=== PATIENT | female | born 1950 | race American Indian/Alaskan Native ===

== ENCOUNTER 2020-12-02 14:57 | Observation (INO) | payer MEDICARE ==
[2020-12-02] MEDS ORDERED: ASPIRIN 325 MG TAB PO ONE (15:04)
[2020-12-02 15:51] LABS: Basophils % (Auto) 0.6 % (0.0-1.8); Eosinophils # (Auto) 0.1 K/mm3 (0.0-0.4); Eosinophils % (Auto) 2.6 % (0.0-4.3); Hematocrit 34.8 % (30.3-42.9); Hemoglobin 11.7 gm/dl (10.1-14.3); Lymphocytes # (Auto) 1.1 K/mm3 (1.2-5.4); Lymphocytes % (Auto) 32.6 % (13.4-35.0); Mean Corpuscular HGB Conc 34 % (30-34); Mean Corpuscular Volume 95 fl (79-97); Monocytes # (Auto) 0.3 K/mm3 (0.0-0.8); Monocytes % (Auto) 8.4 % (0.0-7.3); Platelet Count 196 K/mm3 (140-440); Red Blood Count 3.65 M/mm3 (3.65-5.03)
[2020-12-02 16:04] LABS: Alanine Aminotransferase 12 units/L (7-56); Albumin 4.4 g/dL (3.9-5); Blood Urea Nitrogen 8 mg/dL (7-17); Calcium 9.9 mg/dL (8.4-10.2); Hemolysis Index 9
--- NOTE | 2020-12-02 16:06 | XRay Report ---
CHEST 2 VIEWS INDICATION / CLINICAL INFORMATION: chest pain. COMPARISON: None available. FINDINGS: SUPPORT DEVICES: None. HEART / MEDIASTINUM: No significant abnormality. LUNGS / PLEURA: No significant pulmonary or pleural abnormality. No pneumothorax. ADDITIONAL FINDINGS: No significant additional findings. IMPRESSION: 1. No acute findings. Signer Name: Freddy Jackson MD Signed: 12/02/2020 4:01 PM Workstation Name: [id number]
[2020-12-02 16:10] LABS: BUN/Creatinine Ratio 11
--- NOTE | 2020-12-02 18:47 | Event Note ---
ED Screening Note ED Screening Note: states she received the COVID 19 vaccine three days ago states she has been having right sided CP no radiation of the pain states it feels tightness + occasional SOB no pleuritic CP no fever no v/d no cough PMHx DM, breast cancer in remission 5 years allergy: sulfa never been a smoker no cardiac hx no hx of DVT/PE This initial assessment/diagnostic orders/clinical plan/treatment(s) is/are subject to change based on patients health status, clinical progression and re- assessment by fellow clinical providers in the ED. Further treatment and workup at subsequent clinical providers discretion. Patient/guardian urged not to elope from the ED as their condition may be serious if not clinically assessed and managed. Initial orders include: second troponin, needs d-dimer due to CP/SOB with cancer hx
--- NOTE | 2020-12-02 21:17 | Emergency Department Report ---
ED Chest Pain HPI - General Chief Complaint: Chest Pain Stated Complaint: CHEST PAIN Time Seen by Provider: 12/02/20 18:44 Source: patient Mode of arrival: Ambulatory Limitations: No Limitations - History of Present Illness Initial Comments: Patient is a 70-year-old -[place] female with a history of cbd-javtdhp-bxirthwma diabetes, breast cancer s/p lumpectomy in 2014 and neck surgery in 2018 and who presents to the ED with complaint of acute onset persistent right-sided chest pain that radiates to the right shoulder and lateral right neck for the last 4 days. Patient states that the pain is worse with movement, inhalation, or when she lays on the right side of her chest. Patient described the pain as persistent, intermittently sharp but also pressure-like. Patient states that she has not been physically evaluated by her director translational in over 2 years except for a virtual visit she had with the director translational over 12 months ago. Patient also states that she has not had any cardiac stress test in over 20 years. Patient also states that the pain in the right side of the chest has also been intermittently radiating to the left chest wall and to the left shoulder intermittently for the last 12 hours. Patient denies dizziness, syncope, fever, chills, cough, abdominal pain, diaphoresis, nausea and vomiting, heavy lifting, back pain, change in vision, heavy lifting or fall. MD Complaint: chest pain (Right-sided chest wall pain), other (Right shoulder and right lateral neck pain with any movement) -: Sudden, days(s) (4) Onset: awoke with symptoms Pain Location: right chest, other (right shoulder, lateral right neck) Pain Radiation: RUE, neck (lateral right neck) Severity: severe Severity scale (0 -10): 8 Quality: aching, sharp Consistency: constant Improves With: nothing, other (tylenol) Worsens With: exertion, inspiration, palpation, movement re: denies: nausea, vomting, diaphoresis, dyspnea, sense of impending doom Other Symptoms: denies: cough, fever, syncope, rash, acid taste in mouth, leg swelling, palpitations, burping Treatments Prior to Arrival: none Aspirin use within the Past 7 Days: (0) No - Related Data On Oral Contraceptives: No Allergies Allergy/AdvReac Type Severity Reaction Status Date / Time Sulfa (Sulfonamide AdvReac Swelling Verified 12/02/20 15:04 Antibiotics) Heart Score - HEART Score History: Moderately suspicious EKG: Non-specific Age: > 65 Risk factors: 1-2 risk factors Troponin: < normal limit HEART Score: 5 - EKG Read Time Time EKG Completed: 15:18 EKG Read Time: 15:23 - Critical Actions Critical Actions: 4-6 pts:12-16.6% risk of adverse cardiac event. Should be admitted ED Review of Systems ROS: Stated complaint: CHEST PAIN Other details as noted in HPI Constitutional: denies: chills, fever Eyes: denies: eye pain, eye discharge, vision change ENT: denies: ear pain, throat pain Respiratory: denies: cough, shortness of breath, wheezing Cardiovascular: chest pain (Right-sided chest pain that radiates to the right shoulder and lateral right neck). denies: palpitations, dyspnea on exertion, edema, syncope Endocrine: no symptoms reported Gastrointestinal: denies: abdominal pain, nausea, vomiting, diarrhea Genitourinary: denies: urgency, dysuria, discharge Musculoskeletal: arthralgia (Right shoulder and lateral right sided neck pain), other (Neck pain). denies: back pain, joint swelling Skin: denies: rash, lesions Neurological: denies: headache, weakness, paresthesias Psychiatric: denies: anxiety, depression Hematological/Lymphatic: denies: easy bleeding, easy bruising ED Past Medical Hx - Past Medical History Hx Diabetes: Yes Additional medical history: Right sided breast cancer s/p lumpectomy; cervical disc surgery ED Physical Exam - General Limitations: No Limitations General appearance: alert, in no apparent distress - Head Head exam: Present: atraumatic, normocephalic, normal inspection - Eye Eye exam: Present: normal appearance, PERRL, EOMI Pupils: Present: normal accommodation - ENT ENT exam: Present: normal exam, normal orophraynx, mucous membranes moist, TM's normal bilaterally, normal external ear exam - Neck Neck exam: Present: normal inspection, tenderness (Palpable cervical paraspinal musculoskeletal tenderness), other (No midline tenderness). Absent: meningismus , full ROM, lymphadenopathy, thyromegaly - Respiratory Respiratory exam: Present: normal lung sounds bilaterally, chest wall tenderness (Palpable reproducible anterior right-sided chest wall tenderness). Absent: respiratory distress, wheezes, rales, rhonchi, accessory muscle use, decreased breath sounds, prolonged expiratory - Cardiovascular Cardiovascular Exam: Present: regular rate, normal rhythm, normal heart sounds. Absent: systolic murmur, diastolic murmur, rubs, gallop - GI/Abdominal GI/Abdominal exam: Present: soft, normal bowel sounds. Absent: tenderness, guarding, rebound, hyperactive bowel sounds, hypoactive bowel sounds, organomegaly - Extremities Exam Extremities exam: Present: normal inspection, full ROM, tenderness (Palpable right shoulder tenderness), normal capillary refill. Absent: pedal edema, calf tenderness - Back Exam Back exam: Present: normal inspection, full ROM. Absent: tenderness, CVA tenderness (R), CVA tenderness (L), muscle spasm, paraspinal tenderness, ashleigh tebral tenderness, rash noted - Neurological Exam Neurological exam: Present: alert, oriented X3, CN II-XII intact, normal gait, reflexes normal - Psychiatric Psychiatric exam: Present: normal affect, normal mood - Skin Skin exam: Present: warm, dry, intact, normal color. Absent: rash ED Course Vital Signs 12/02/20 15:03 Temperature 98.8 F Pulse Rate 62 Respiratory 14 Rate Blood Pressure 125/68 [Left] O2 Sat by Pulse 100 Oximetry DOV score - Dov Score Age > 65: (0) No Aspirin use within the Past 7 Days: (0) No 3 or more CAD Risk Factors: (0) No 2 or more Angina events in past 24 hrs: (0) No Known CAD with more than 50% Stenosis: (0) No Elevated Cardiac Markers: (0) No ST Deviation Greater than 0.5mm: (0) No DOV Score: 0 ED Medical Decision Making - Lab Data Result diagrams: 12/02/20 15:29 12/02/20 15:29 - EKG Data EKG shows normal: sinus rhythm Rate: normal - EKG Data Interpretation: normal EKG 12/02/20 21:19 EKG shows normal sinus rhythm with a ventricular rate of 62 bpm and borderline T wave abnormalities in diffuse leads. - Radiology Data Radiology results: report reviewed, image reviewed [facility] [address] [place] [address] XRay Report Signed Patient: TOHNG RAVI MR#: [id number] : 1950 Acct:[id number] Age/Sex: 70 / F ADM Date: 12/02/20 Loc: ED Attending Dr: Ordering Physician: ARPIT ROWE MD Date of Service: 12/02/20 Procedure(s): XR chest routine 2V Accession Number(s): [id number] cc: ED MD JAE Fluoro Time In Minutes: CHEST 2 VIEWS INDICATION / CLINICAL INFORMATION: chest pain. COMPARISON: None available. FINDINGS: SUPPORT DEVICES: None. HEART / MEDIASTINUM: No significant abnormality. LUNGS / PLEURA: No significant pulmonary or pleural abnormality. No pneumothorax. ADDITIONAL FINDINGS: No significant additional findings. IMPRESSION: 1. No acute findings. Signer Name: Freddy Jackson MD Signed: 12/02/2020 4:01 PM Workstation Name: [id number] Transcribed By: SB Dictated By: FREDDY JACKSON MD Electronically Authenticated By: FREDDY JACKSON MD Signed Date/Time: 12/02/201600 DD/ 00 TD/TT: - Medical Decision Making This is a 70-year-old -[place] female with a history of clm-opviaue-ftypyarly diabetes, breast cancer s/p lumpectomy in 2014 and neck surgery in 2018 and who presents to the ED with complaint of acute onset persistent right-sided chest pain that radiates to the right shoulder and lateral right neck for the last 4 days. Patient states that the pain is worse with movement, inhalation, or when she lays on the right side of her chest. Patient described the pain as persistent, intermittently sharp but also pressure-like. Patient states that she has not been physically evaluated by her director translational in over 2 years except for a virtual visit she had with the director translational over 12 months ago. Patient also states that she has not had any cardiac stress test in over 20 years. Patient also states that the pain in the right side of the chest has also been intermittently radiating to the left chest wall and to the left shoulder intermittently for the last 12 hours. In the ED, patient is alert and oriented x3 and is not in any distress. Patient is hemodynamically stable. EKG shows normal sinus rhythm with ventricular rate of 62 bpm, but low voltage in precordial leads and borderline T wave abnormalities in diffuse leads. Chest x-ray shows no acute cardiopulmonary abnormalities or pneumonitis. Lab test results were reviewed and are all nonactionable including the initial and 3-hour troponin levels. The patient's heart score is 5 and her D-dimer level was normal. The other differential diagnoses were considered including ACS, pneumonia, dissection, costochondritis or GERD.. The patient symptoms are unlikely to be due to PE as D-dimer was normal. Patient was treated for pain in the ED. The patient case was discussed with the ED attending physician Dr. Ej Gallardo who also evaluated the patient and agreed with the plan of care. Patient she will be admitted to the hospital for further evaluation. The hospitalist physician on-call Dr. Sebastian was paged and he also evaluated the patient and admitted the patient to the hospital. - Differential Diagnosis ACS; dissection; PE; pneumonia; GERD; Costochondritis Critical Care Time: Yes Critical care time in (mins) excluding proc time.: 35 Critical care attestation.: If time is entered above; I have spent that time in minutes in the direct care of this critically ill patient, excluding procedure time. 35 minutes of critical care time spent on review of lab test results as well as imaging reports, patient education regarding the plan of care and lab test results, consultation with the other physicians, and chart review and completion. Critical Care Time: 35 minutes of critical care time spent on review of lab test results as well as imaging reports, patient education regarding the plan of care and lab test results, consultation with the other physicians, and chart review and completion. ED Disposition Clinical Impression: Right-sided chest pain Disposition: 02 SHORT TERM HOSPITAL Is pt being admited?: Yes Does the pt Need Aspirin: Yes Condition: Stable Instructions: Nonspecific Chest Pain, Adult Time of Disposition: 21:36 Print Language: SETSWANA
[2020-12-02] MEDS ORDERED: ONDANSETRON 4 MG/2 ML INJ IV ONE (21:38)
[2020-12-02] MEDS ORDERED: MORPHINE 4 MG/1 ML INJ IV ONE (21:38)
[2020-12-02] MEDS ORDERED: ONDANSETRON 4 MG/2 ML INJ IV PRN (21:45)
[2020-12-02] MEDS ORDERED: ACETAMINOPHEN 325 MG TAB PO PRN (21:45)
--- NOTE | 2020-12-02 22:04 | Event Note ---
Date of service: 12/02/20 Face to Face: For this encounter I have reviewed the PA/TOE PULLER documentation, treatment plan, medical decision making, and I had face to face time with this patient. The patient was evaluated in the emergency department for symptoms described in the history of present illness. He/she was evaluated in the context of the global COVID-19 pandemic, which necessitated consideration that the patient might be at risk for infection with the virus that causes COVID-19. Institutional protocols and algorithms that pertain to the evaluation of patients at risk for COVID-19 are in a state of rapid change based on information released by regulatory bodies including the CDC and federal and state organizations. These policies and algorithms were followed during the patient's care in the emergency department. Please note that these policies, procedures and recommendations changed on a rapid basis. Patient is a 70-year-old female, with a history of diabetes, no recent cardiac for stratification, has received 1 round of COVID-19 vaccination, presenting with central, right-sided and left-sided chest pain. Patient denies vomiting, diaphoresis and exertional shortness of breath. Troponin negative x2. D-dimer negative. Patient denies loss of taste and smell. EKG abnormal, sinus rhythm, bradycardia, with a left axis deviation, and left anterior fascicular block. Patient moderate risk for major adverse cardiac event as per heart score. Denies immobilization, surgery, leg pain, leg swelling, and oral contraceptive use. Had a recent 4-hour road trip to [place]. Not currently tachycardic, tachypneic or hypoxic. External physical examination otherwise unremarkable. Recommend admission to the medical service for cardiac risk ratification. I discussed this with the patient. She is agreeable to this plan of care. Physician pet care assistant to admit this patient to the medical service. Vital Signs 12/02/20 15:03 Temperature 98.8 F Pulse Rate 62 Respiratory 14 Rate Blood Pressure 125/68 [Left] O2 Sat by Pulse 100 Oximetry Lab Results 12/02/20 12/02/20 12/02/20 Range/Units 15:29 15:29 18:13 WBC 3.5 L (4.5-11.0) K/mm3 RBC 3.65 (3.65-5.03) M/mm3 Hgb 11.7 (10.1-14.3) gm/dl Hct 34.8 (30.3-42.9) % MCV 95 (79-97) fl MCH 32 (28-32) pg MCHC 34 (30-34) % RDW 13.0 L (13.2-15.2) % Plt Count 196 (140-440) K/mm3 Lymph % (Auto) 32.6 (13.4-35.0) % [place] % (Auto) 8.4 H (0.0-7.3) % Eos % (Auto) 2.6 (0.0-4.3) % Baso % (Auto) 0.6 (0.0-1.8) % Lymph # (Auto) 1.1 L (1.2-5.4) K/mm3 [place] # (Auto) 0.3 (0.0-0.8) K/mm3 Eos # (Auto) 0.1 (0.0-0.4) K/mm3 Baso # (Auto) 0.0 (0.0-0.1) K/mm3 Seg Neutrophils % 55.8 (40.0-70.0) % Seg Neutrophils # 2.0 (1.8-7.7) K/mm3 D-Dimer (0-234) ng/mlDDU Sodium 140 (137-145) mmol/L Potassium 3.6 (3.6-5.0) mmol/L Chloride 104.4 (98-107) mmol/L Carbon Dioxide 26 (22-30) mmol/L Anion Gap 13 mmol/L BUN 8 (7-17) mg/dL Creatinine 0.7 (0.6-1.2) mg/dL Estimated GFR > 60 ml/min BUN/Creatinine Ratio 11 % Glucose 128 H (65-100) mg/dL Calcium 9.9 (8.4-10.2) mg/dL Total Bilirubin 0.20 (0.1-1.2) mg/dL AST 17 (5-40) units/L ALT 12 (7-56) units/L Alkaline Phosphatase 51 (35-129) units/L Troponin T < 0.010 < 0.010 (0.00-0.029) ng/mL Total Protein 7.3 (6.3-8.2) g/dL Albumin 4.4 (3.9-5) g/dL Albumin/Globulin Ratio 1.5 % 08/30/21 Range/Units 19:06 WBC (4.5-11.0) K/mm3 RBC (3.65-5.03) M/mm3 Hgb (10.1-14.3) gm/dl Hct (30.3-42.9) % MCV (79-97) fl MCH (28-32) pg MCHC (30-34) % RDW (13.2-15.2) % Plt Count (140-440) K/mm3 Lymph % (Auto) (13.4-35.0) % [place] % (Auto) (0.0-7.3) % Eos % (Auto) (0.0-4.3) % Baso % (Auto) (0.0-1.8) % Lymph # (Auto) (1.2-5.4) K/mm3 [place] # (Auto) (0.0-0.8) K/mm3 Eos # (Auto) (0.0-0.4) K/mm3 Baso # (Auto) (0.0-0.1) K/mm3 Seg Neutrophils % (40.0-70.0) % Seg Neutrophils # (1.8-7.7) K/mm3 D-Dimer 145.24 (0-234) ng/mlDDU Sodium (137-145) mmol/L Potassium (3.6-5.0) mmol/L Chloride (98-107) mmol/L Carbon Dioxide (22-30) mmol/L Anion Gap mmol/L BUN (7-17) mg/dL Creatinine (0.6-1.2) mg/dL Estimated GFR ml/min BUN/Creatinine Ratio % Glucose (65-100) mg/dL Calcium (8.4-10.2) mg/dL Total Bilirubin (0.1-1.2) mg/dL AST (5-40) units/L ALT (7-56) units/L Alkaline Phosphatase (35-129) units/L Troponin T (0.00-0.029) ng/mL Total Protein (6.3-8.2) g/dL Albumin (3.9-5) g/dL Albumin/Globulin Ratio % CHEST 2 VIEWS INDICATION / CLINICAL INFORMATION: chest pain. COMPARISON: None available. FINDINGS: SUPPORT DEVICES: None. HEART / MEDIASTINUM: No significant abnormality. LUNGS / PLEURA: No significant pulmonary or pleural abnormality. No pneumothorax. ADDITIONAL FINDINGS: No significant additional findings. IMPRESSION: 1. No acute findings. Signer Name: Freddy Jackson MD Signed: 12/02/2020 3:01 PM Workstation Name: [email or web address]
[2020-12-03] MEDS ORDERED: NITROGLYCERIN 0.4 MG TAB SUBL SL PRN (00:38)
[2020-12-03] MEDS ORDERED: MAGNESIUM HYDROXIDE (MOM) ORAL LIQD UDC PO PRN (00:38)
[2020-12-03] MEDS ORDERED: MORPHINE 2 MG/1 ML INJ IV PRN (00:38)
[2020-12-03] MEDS ORDERED: MORPHINE 4 MG/1 ML INJ IV PRN (00:38)
[2020-12-03] MEDS ORDERED: ACETAMINOPHEN 325 MG TAB PO PRN ×2 (00:38)
[2020-12-03] MEDS ORDERED: DEXTROSE 50% IN WATER (25GM) 50 ML SYRINGE IV PRN (00:38)
[2020-12-03] MEDS ORDERED: ONDANSETRON 4 MG/2 ML INJ IV PRN (00:38)
[2020-12-03] MEDS ORDERED: traMADol 50 MG TAB PO PRN (00:38)
--- NOTE | 2020-12-03 01:00 | History and Physical Report ---
History of Present Illness Date of examination: 12/03/20 Date of admission: 12/02/20 21:39 Chief complaint: Chest Pain History of present illness: 70-year-old white female with known history of diabetes mellitus and history of right-sided breast cancer status lumpectomy presents to the emergency room today complaining of chest pain. Chest pain is said to be right-sided and has been ongoing for the past 4 days. Pain is worse upon exertion and gets better upon resting. Pain has been intermittent and occasionally sharp and pressure-like in nature. She has had some radiation to the right side of her neck and shoulder. On a scale of 10 pain was about 8/10 in severity. Last stress test was about 20 years ago. Patient denies any headache or dizziness, no syncope and no diaphoresis. She denies any fever or chills, no cough, no nausea vomiting and no abdominal pain. She denies any hematuria or dysuria. Patient denies any sick contacts and no recent travel. Denies any contact with anyone with COVID-19. Work-up in the emergency room today has been unremarkable. Troponins have been negative. EKG and chest x-ray has been within normal limits. Patient is being admitted for chest pain evaluation. Past History Past Medical History: diabetes Past Surgical History: Other (Right sided Breast Ca s/p Lumpectomy, Cervical Disc Surgery) Social history: no significant social history Family history: no significant family history Medications and Allergies Allergies Allergy/AdvReac Type Severity Reaction Status Date / Time Sulfa (Sulfonamide AdvReac Swelling Verified 12/02/20 15:04 Antibiotics) Active Meds: Active Medications Acetaminophen (Acetaminophen 325 Mg Tab) 650 mg PO Q4H PRN PRN Reason: Pain MILD(1-3)/Fever >100.5/HEREDIA Last Admin: 12/02/20 22:53 Dose: 650 mg Documented by: Acetaminophen (Acetaminophen 325 Mg Tab) 650 mg PO Q4H PRN PRN Reason: Pain MILD(1-3)/Fever >100.5/HEREDIA Acetaminophen (Acetaminophen 325 Mg Tab) 650 mg PO Q6H PRN PRN Reason: Pain, Mild (1-3) Aspirin (Aspirin Ec 325 Mg Tab) 325 mg PO QDAY BRENNA Dextrose (Dextrose 50% In Water (25gm) 50 Ml Syringe) 50 ml IV Q30MIN PRN; Protocol PRN Reason: Hypoglycemia Heparin Sodium (Porcine) (Heparin 5,000 Unit/1 Ml Vial) 5,000 unit SUB-Q Q8HR [facility] Insulin Human Lispro (Insulin Lispro 100 Unit/Ml) 0 unit SUB-Q ACHS [facility]; Protocol Magnesium Hydroxide (Magnesium Hydroxide (Mom) Oral Liqd Udc) 30 ml PO Q4H PRN PRN Reason: Constipation Morphine Sulfate (Morphine 2 Mg/1 Ml Inj) 2 mg IV Q4H PRN PRN Reason: Pain, Moderate (4-6) Morphine Sulfate (Morphine 4 Mg/1 Ml Inj) 4 mg IV Q4H PRN PRN Reason: Pain , Severe (7-10) Nitroglycerin (Nitroglycerin 0.4 Mg Tab Subl) 0.4 mg SL Q5M PRN PRN Reason: Chest Pain Ondansetron HCl (Ondansetron 4 Mg/2 Ml Inj) 4 mg IV Q8H PRN PRN Reason: Nausea And Vomiting Ondansetron HCl (Ondansetron 4 Mg/2 Ml Inj) 4 mg IV Q8H PRN PRN Reason: Nausea And Vomiting Sodium Chloride (Sodium Chloride 0.9% 10 Ml Flush Syringe) 10 ml IV BID [facility] Last Admin: 12/02/20 23:03 Dose: 10 ml Documented by: Sodium Chloride (Sodium Chloride 0.9% 10 Ml Flush Syringe) 10 ml IV PRN PRN PRN Reason: LINE FLUSH Sodium Chloride (Sodium Chloride 0.9% 10 Ml Flush Syringe) 10 ml IV BID [facility] Sodium Chloride (Sodium Chloride 0.9% 10 Ml Flush Syringe) 10 ml IV PRN PRN PRN Reason: LINE FLUSH Sodium Chloride (Sodium Chloride 0.9% 10 Ml Flush Syringe) 10 ml IV PRN PRN PRN Reason: LINE FLUSH Tramadol HCl (Tramadol 50 Mg Tab) 50 mg PO Q6H PRN PRN Reason: Pain, Moderate (4-6) Review of Systems Constitutional: no fever, no chills Ears, nose, mouth and throat: no nasal congestion, no sore throat Cardiovascular: chest pain, no palpitations Respiratory: no cough, no shortness of breath Gastrointestinal: no abdominal pain, no nausea, no vomiting, no diarrhea Genitourinary Female: no pelvic pain, no flank pain, no dysuria, no hematuria Musculoskeletal: no neck pain, no low back pain Integumentary: no rash, no pruritis Neurological: no headaches, no confusion Psychiatric: no anxiety, no depression, no confusion Endocrine: no polyphagia, no polydipsia, no polyuria, no nocturia Exam - Constitutional Vitals: Temp Pulse Resp BP Pulse Ox 98.8 F 62 14 125/68 100 12/02/20 15:03 12/02/20 15:03 12/02/20 15:03 12/02/20 15:03 12/02/20 15:03 General appearance: Present: no acute distress, well-nourished - EENT Eyes: Present: PERRL, EOM intact. Absent: scleral icterus ENT: hearing intact, clear oral mucosa - Neck Neck: Present: supple, normal ROM - Respiratory Respiratory effort: normal Respiratory: bilateral: CTA - Cardiovascular Rhythm: regular Heart Sounds: Present: S1 & S2. Absent: gallop, systolic murmur, diastolic murmur, rub, click - Extremities Extremities: no ischemia, pulses intact, pulses symmetrical, No edema, normal temperature, normal color, Full ROM Peripheral Pulses: within normal limits - Abdominal General gastrointestinal: Present: soft, non-tender, non-distended, normal bowel sounds. Absent: mass - Integumentary Integumentary: Present: clear, warm, dry, normal turgor. Absent: rash - Musculoskeletal Musculoskeletal: strength equal bilaterally - Psychiatric Psychiatric: appropriate mood/affect, intact judgment & insight, memory intact, cooperative - Neurologic Neurologic: CNII-XII intact, no focal deficits, moves all extremities HEART Score - HEART Score History: Moderately suspicious EKG: Non-specific Age: > 65 Risk factors: 1-2 risk factors Troponin: Troponin T < 0.010 ng/mL (0.00-0.029) 12/02/20 18:13 Troponin: < normal limit HEART Score: 5 - Critical Actions Critical Actions: 4-6 pts:12-16.6% risk of adverse cardiac event. Should be admitted Results - Labs CBC & Chem 7: 12/03/20 04:24 12/03/20 04:24 Labs: Abnormal lab results 12/02/20 12/02/20 Range/Units 15:29 15:29 WBC 3.5 L (4.5-11.0) K/mm3 RDW 13.0 L (13.2-15.2) % [place] % (Auto) 8.4 H (0.0-7.3) % Lymph # (Auto) 1.1 L (1.2-5.4) K/mm3 Glucose 128 H (65-100) mg/dL Assessment and Plan - Patient Problems (1) Chest pain Current Visit: Yes Status: Acute Plan to address problem: Patient admitted and placed on telemetry. Serial cardiac enzymes have been negative. Will monitor EKG. Patient commenced on daily aspirin, sublingual nitroglycerin and IV morphine as needed for chest pain. Will request cardiology evaluation. (2) Diabetes mellitus Current Visit: Yes Status: Acute Plan to address problem: We will monitor Accu-Cheks closely. Patient placed on sliding scale insulin. (3) DVT prophylaxis Current Visit: Yes Status: Acute Plan to address problem: Patient placed on subcutaneous heparin. (4) Full code status Current Visit: Yes Status: Acute Plan to address problem: Patient is full code.
[2020-12-03 05:14] LABS: Basophils % (Auto) 0.6 % (0.0-1.8); Eosinophils # (Auto) 0.1 K/mm3 (0.0-0.4); Eosinophils % (Auto) 3.5 % (0.0-4.3); Hematocrit 34.4 % (30.3-42.9); Hemoglobin 11.5 gm/dl (10.1-14.3); Lymphocytes # (Auto) 1.5 K/mm3 (1.2-5.4); Mean Corpuscular HGB Conc 33 % (30-34); Mean Corpuscular Volume 96 fl (79-97); Monocytes # (Auto) 0.4 K/mm3 (0.0-0.8); Platelet Count 188 K/mm3 (140-440); Red Blood Count 3.59 M/mm3 (3.65-5.03); Red Cell Distribution Width 13.1 % (13.2-15.2)
[2020-12-03 05:23] LABS: Blood Urea Nitrogen 8 mg/dL (7-17); Hemolysis Index 2
[2020-12-03 05:29] LABS: BUN/Creatinine Ratio 13
[2020-12-03] MEDS: HEPARIN 5,000 UNIT/1 ML VIAL SUB-Q SCH ×3 (06:14→23:17)
[2020-12-03] MEDS ORDERED: REGADENOSON 0.4 MG/5 ML INJ IV ONE (07:28)
[2020-12-03] MEDS: INSULIN LISPRO 100 UNIT/ML SUB-Q SCH ×4 (08:57→23:20)
--- NOTE | 2020-12-03 09:45 | Electrocardiograph Report ---
[facility] Test Date: 2020-12-02 Test Time: 15:18:33 Pat Name: THONG RAVI Department: Room: A460 1 Gender: F Shoe Planner: GAGAN : 1950 Requested By: JARRETT CORDOVA Order Number: [id number] Reading MD: Vitaly Perez Measurements Intervals [place] Rate: 62 P: 43 WV: 206 QRS: 1 QRSD: 82 T: -29 QT: 385 QTc: 390 Interpretive Statements Sinus rhythm Low voltage, precordial leads Borderline T abnormalities, diffuse leads No previous ECG available for comparison Electronically Signed On 12-03-2020 9:45:50 EDT by Vitaly Perez
--- NOTE | 2020-12-03 11:23 | Consultation ---
<RAMSES VALLE - Last Filed: 12/03/20 11:36> History of Present Illness Consult date: 12/03/20 Consult reason: chest pain History of present illness: This is a 70-year old F with a history of diabetes, no prior cardiac history. She presents to this hospital with complaints of chest pain. Chest pain is intermittent and nonexertional. Denies shortness of breath and denies palpitations. Chest x-ray is negative. Troponin levels were normal. An ECG is sinus rhythm with non-specific T wave abnormalities, low voltage. She was admitted by the hospitalist and ordered to undergo a stress thallium test. Cardiology consultation has been requested. Past History Past Medical History: diabetes Past Surgical History: Other (Right sided Breast Ca s/p Lumpectomy, Cervical Disc Surgery) Social history: no significant social history Family history: no significant family history Medications and Allergies Allergies Allergy/AdvReac Type Severity Reaction Status Date / Time Sulfa (Sulfonamide AdvReac Swelling Verified 12/02/20 15:04 Antibiotics) Active Meds: Active Medications Acetaminophen (Acetaminophen 325 Mg Tab) 650 mg PO Q4H PRN PRN Reason: Pain MILD(1-3)/Fever >100.5/HEREDIA Aspirin (Aspirin Ec 325 Mg Tab) 325 mg PO QDAY [facility] Dextrose (Dextrose 50% In Water (25gm) 50 Ml Syringe) 50 ml IV Q30MIN PRN; Protocol PRN Reason: Hypoglycemia Heparin Sodium (Porcine) (Heparin 5,000 Unit/1 Ml Vial) 5,000 unit SUB-Q Q8HR [facility] Last Admin: 12/03/20 06:14 Dose: 5,000 unit Documented by: Insulin Human Lispro (Insulin Lispro 100 Unit/Ml) 0 unit SUB-Q [facility]; Protocol Magnesium Hydroxide (Magnesium Hydroxide (Mom) Oral Liqd Udc) 30 ml PO Q4H PRN PRN Reason: Constipation Morphine Sulfate (Morphine 2 Mg/1 Ml Inj) 2 mg IV Q4H PRN PRN Reason: Pain, Moderate (4-6) Morphine Sulfate (Morphine 4 Mg/1 Ml Inj) 4 mg IV Q4H PRN PRN Reason: Pain , Severe (7-10) Nitroglycerin (Nitroglycerin 0.4 Mg Tab Subl) 0.4 mg SL Q5M PRN PRN Reason: Chest Pain Ondansetron HCl (Ondansetron 4 Mg/2 Ml Inj) 4 mg IV Q8H PRN PRN Reason: Nausea And Vomiting Sodium Chloride (Sodium Chloride 0.9% 10 Ml Flush Syringe) 10 ml IV BID BRENNA Sodium Chloride (Sodium Chloride 0.9% 10 Ml Flush Syringe) 10 ml IV PRN PRN PRN Reason: LINE FLUSH Tramadol HCl (Tramadol 50 Mg Tab) 50 mg PO Q6H PRN PRN Reason: Pain, Moderate (4-6) Review of Systems Cardiovascular: chest pain Physical Examination Vital Signs Temp Pulse Resp BP Pulse Ox 98.8 F 62 14 125/68 100 12/02/20 15:03 12/02/20 15:03 12/02/20 15:03 12/02/20 15:03 12/02/20 15:03 General appearance: no acute distress HEENT: Positive: PERRL Neck: Positive: trachea midline Cardiac: Positive: Reg Rate and Rhythm Lungs: Positive: Decreased Breath Sounds Neuro: Positive: Grossly Intact Results 12/03/20 04:24 12/03/20 04:24 Cardiac Enzymes 12/02/20 Range/Units 15:29 AST 17 (5-40) units/L CBC 12/02/20 12/03/20 Range/Units 15:29 04:24 WBC 3.5 L 3.4 L (4.5-11.0) K/mm3 RBC 3.65 3.59 L (3.65-5.03) M/mm3 Hgb 11.7 11.5 (10.1-14.3) gm/dl Hct 34.8 34.4 (30.3-42.9) % Plt Count 196 188 (140-440) K/mm3 Lymph # (Auto) 1.1 L 1.5 (1.2-5.4) K/mm3 Ray # (Auto) 0.3 0.4 (0.0-0.8) K/mm3 Eos # (Auto) 0.1 0.1 (0.0-0.4) K/mm3 Baso # (Auto) 0.0 0.0 (0.0-0.1) K/mm3 Comprehensive Metabolic Panel 12/02/20 12/03/20 Range/Units 15:29 04:24 Sodium 140 143 (137-145) mmol/L Potassium 3.6 3.9 (3.6-5.0) mmol/L Chloride 104.4 105.4 (98-107) mmol/L Carbon Dioxide 26 30 (22-30) mmol/L BUN 8 8 (7-17) mg/dL Creatinine 0.7 0.6 (0.6-1.2) mg/dL Glucose 128 H 84 (65-100) mg/dL Calcium 9.9 10.0 (8.4-10.2) mg/dL AST 17 (5-40) units/L ALT 12 (7-56) units/L Alkaline Phosphatase 51 (35-129) units/L Total Protein 7.3 (6.3-8.2) g/dL Albumin 4.4 (3.9-5) g/dL Assessment and Plan - Patient Problems (1) Chest pain Status: Acute Plan to address problem: For stress thallium test and echocardiogram today. Results are pending. <JESSICA ELMORE - Last Filed: 12/05/20 11:39> History of Present Illness History of present illness: I SAW THIS PT & AGREE WITH THE Dx & Tx PLAN. Physical Examination Vital Signs Temp Pulse Resp BP Pulse Ox 98.8 F 62 14 125/68 100 12/02/20 15:03 12/02/20 15:03 12/02/20 15:03 12/02/20 15:03 12/02/20 15:03 Results 12/04/20 04:28 12/04/20 04:28
--- NOTE | 2020-12-03 14:40 | Discharge Summary ---
Providers - Providers Date of Admission: 12/02/20 21:39 Date of discharge: 12/04/20 Attending physician: ANTHONY ANDERSON 12/03/20 Consult to Cardiac Rehabilitation [CONS] Routine Reason For Exam: Phase I 12/03/20 00:38 Consult to Cardiology [CONS] Routine Consulting Provider: HAM HUBER Reason For Exam: Chest Pain Consult to Dietitian/Nutrition [CONS] Routine Physician Instructions: Reason For Exam: Reason for Consult: Diet education Primary care physician: JACKELINE HUBER Hospitalization Condition: Stable Hospital course: 70-year-old white female with known history of diabetes mellitus and history of right-sided breast cancer status lumpectomy presents to the emergency room today complaining of chest pain. Chest pain is said to be right-sided and has been ongoing for the past 4 days. Work-up in the emergency room has been unremarkable. Troponins have been negative. EKG and chest x-ray has been within normal limits. Patient was admitted and underwent myocardial stress test which was was abnormal. Cardiac cath was completed without complications by cardiology as MPI stress test was read abnormal. Abnormal on cardiac cath showed no significant coronary artery disease, EF is well preserved. Patient was then discharged home in stable condition with outpatient follow-up. Disposition: 01 HOME / SELF CARE / HOMELESS Final Discharge Diagnosis (Prints w/discharge instructions): --Atypical chest pain, likely musculoskeletal. --Diabetes mellitus type 2. --History of right- sided breast cancer status post lumpectomy Time spent for discharge: 34 minutes Core Measure Documentation - Palliative Care Palliative Care/ Comfort Measures: Not Applicable - Core Measures Any of the following diagnoses?: none Exam - Physical Exam Narrative exam: GENERAL: well-developed and well-nourished elderly -Slovak female lying on bed appeared to be in no discomfort. HEENT: Normocephalic. Atraumatic. No conjunctival congestion or icterus. Patient has moist mucous membranes. NECK: Supple. Trachea midline. CHEST/LUNGS: Clear to auscultated bilaterally, breathing nonlabored. No wheezes crackles or rhonchi. HEART/CARDIOVASCULAR: Regular in rate and rhythm. S1 and S2 positive. ABDOMEN: Abdomen is soft, nontender. Patient has normal bowel sounds. SKIN: There is no rash. Warm and dry. NEURO: No focal motor deficit. Follows command. MUSCULOSKELETAL: No joint effusion or tenderness. EXTRIMITY: No edema, no cyanosis or clubbing. PSYCH: Cooperative. - Constitutional Vitals: Temp Pulse Resp BP Pulse Ox 98.8 F 50 L 13 121/65 100 12/02/20 15:03 12/03/20 07:20 12/03/20 07:20 12/03/20 08:59 12/03/20 11:45 Plan Activity: advance as tolerated Weight Bearing Status: Weight Bear as Tolerated Diet: low fat, low salt Follow up with: JACKELINE HUBER JR, MD [Primary Care Provider] - 3-5 Days HEATHER LUX MD [Staff Physician] - 7 Days Prescriptions: traMADoL [Ultram 50 MG tab] 50 mg PO Q6H PRN #14 tablet PRN Reason: Pain, Moderate (4-6)
[2020-12-04 05:53] LABS: Basophils % (Auto) 0.6 % (0.0-1.8); Eosinophils # (Auto) 0.1 K/mm3 (0.0-0.4); Eosinophils % (Auto) 1.9 % (0.0-4.3); Hematocrit 35.1 % (30.3-42.9); Hemoglobin 11.7 gm/dl (10.1-14.3); Lymphocytes # (Auto) 1.8 K/mm3 (1.2-5.4); Lymphocytes % (Auto) 40.4 % (13.4-35.0); Mean Corpuscular HGB Conc 33 % (30-34); Mean Corpuscular Volume 96 fl (79-97); Monocytes # (Auto) 0.3 K/mm3 (0.0-0.8); Monocytes % (Auto) 7.2 % (0.0-7.3); Platelet Count 196 K/mm3 (140-440); Red Blood Count 3.65 M/mm3 (3.65-5.03); Red Cell Distribution Width 12.6 % (13.2-15.2)
[2020-12-04 06:00] LABS: INR 0.93 (0.87-1.13)
[2020-12-04 06:07] LABS: BUN/Creatinine Ratio 20; Blood Urea Nitrogen 16 mg/dL (7-17); Calcium 9.5 mg/dL (8.4-10.2); Hemolysis Index 4
[2020-12-04] MEDS: HEPARIN 5,000 UNIT/1 ML VIAL SUB-Q SCH ×2 (07:35→14:40)
[2020-12-04] MEDS: INSULIN LISPRO 100 UNIT/ML SUB-Q SCH ×2 (07:35→12:39)
[2020-12-04] MEDS: SODIUM CHLORIDE 0.9% 500 ML 500 ML IV SCH ×2 (08:56→09:32)
[2020-12-04] MEDS ORDERED: fentaNYL 100 MCG/2 ML INJ ONE (08:56)
[2020-12-04] MEDS ORDERED: MIDAZOLAM 2 MG/2 ML INJ ONE (08:56)
[2020-12-04] MEDS: ASPIRIN EC 325 MG TAB PO SCH ×2 (08:56→14:39)
[2020-12-04] MEDS ORDERED: HEPARIN/NS 5000 UNIT/500ML 1,000 ML IR ONE (08:57)
[2020-12-04] MEDS: LIDOCAINE (2%) 20 MG/1 ML VIAL 20 ML MDV INFILTRATI ONE ×2 (09:33→09:36)
--- NOTE | 2020-12-04 09:46 | Event Note ---
Date: 12/03/20 Patient seen and examined This is the second visit after midnight Patient continues to complains of intermittent chest pain On physical exam S1 and S2 positive, clear to auscultate bilaterally, abdomen is soft, no pedal edema Vitals noted and stable Cardiac enzymes and EKG are in normal limits Patient had stress test today which showed reversible ischemia Plan for cardiac cath tomorrow morning, will keep n.p.o. after midnight Plan of care discussed with the patient in details and she agreed and verbalized understanding -It took me about 28 minutes to reevaluate and reasses this patient, discussed with RN/CM, review medical documents, lab results, imaging, medication list and placing order.
--- NOTE | 2020-12-04 10:47 | Event Note ---
<RAMSES VALLE - Last Filed: 12/04/20 10:45> Date: 12/04/20 Cardiac cath completed without complications. Findings: no significant coronary artery disease, EF is well preserved. Recommend risk factor modification. Stable for discharge home today. <JESSICA ELMORE - Last Filed: 12/05/20 11:28> I SAW THIS PT & AGREE WITH THE Dx & Tx PLAN.
[2020-12-04 11:34] VITALS: BP 126/74
--- NOTE | 2020-12-04 15:37 | Cardiac Catherization Report ---
DATE OF SERVICE: 12/04/2020 INDICATION: The patient is a 70-year-old female who presented with chest pain and underwent a stress test that was abnormal, so coronary angiography was recommended. PROCEDURES PERFORMED: Left heart catheterization, left ventriculography, and coronary angiography via the right femoral artery using 5-[place] catheters and a pigtail catheter. COMPLICATIONS: None. ESTIMATED BLOOD LOSS: 10-20 mL TISSUE SAMPLE: None. SEDATION: Intravenous Versed and fentanyl. PREPROCEDURE DIAGNOSIS: Coronary artery disease. POSTPROCEDURE DIAGNOSIS: No severe coronary lesions, unusual collateral blood flow from the distal right coronary artery to the circumflex. HEMODYNAMICS: Central aortic pressure 108/61. Left ventricular pressure 108/15. SEDATION AND PROCEDURE START TIME: 9:32 a.m. SEDATION END TIME: 9:51 a.m. TOTAL SEDATION AND PROCEDURE TIME: 19 minutes. ANGIOGRAPHIC RESULTS: 1. Left ventricle: Left ventriculogram reveals a normal-sized left ventricle with normal systolic function with ejection fraction of 60-65%. 2. Left coronary artery: This is a normal caliber vessel with minimal intimal irregularities. There are no significant atherosclerotic changes. The LAD extends over the apex and along with the distal circumflex supply the inferior wall. Right coronary artery; this vessel is a relatively small nondominant vessel and the distal branches are of small caliber. There appears to be collateralization to the distal circumflex. There are no atherosclerotic changes. FINAL IMPRESSION: History of chest pain and an abnormal stress test: There are no significant atherosclerotic changes. There is an unusual collateral blood flow from the distal right to the distal circumflex. Left ventricular function is normal. PLAN: Aggressive medical therapy. CAD risk factor modification. Office followup within 1 week. TID: [id number] RECEIPT: [id number] KIARRA/MARK
--- NOTE | 2020-12-05 08:55 | Electrocardiograph Report ---
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
== END 2020-12-04 15:00 | disposition home or self-care (01) ==
LOC: ED 14:57 → 3A 21:39 → 4A 12-03 06:32
PROVIDERS: ADMIT Internal Medicine Geriatric Medicine; ATTEND Internal Medicine
DX: R07.89 Other chest pain (principal); E11.9 Type 2 diabetes mellitus without complications; Z85.3 Personal history of malignant neoplasm of breast; Z79.899 Other long term (current) drug therapy; Z98.890 Other specified postprocedural states; Z79.82 Long term (current) use of aspirin; Z79.4 Long term (current) use of insulin
CPT/HCPCS: 36415; 71046; 78452; 80048; 80053; 82962; 84484; 85025; 85379; 85610; 93005; 93017; 93306; 93458; 96372; 96374; 96375; 99291; A9502; G0378; J1644; J2250; J2270; J2405; J2785; J3010; J7040; Q9967